=== PATIENT | female | born 1995 | race Caucasian/White ===

== ENCOUNTER 2018-06-16 09:50 | Emergency (ER) | payer OTHER ==
--- NOTE | 2018-06-16 10:05 | ED ---
GI/ HPI - HPI Summary HPI Summary: 23-year-old female presents with right-sided abdominal pain for the past couple days. States the pain is worst with movement. States it starts in her back. She admits to urgency and frequency for a day but that has since resolved. She did have a days worth of hematuria. Denies any vomiting. She states that food makes the pain worse. No diarrhea or constipation. She states she did have some dark looking stool yesterday. She denies any history of this pain. No previous abd surgeries. Has no medical conditions. Tried some ibuprofen for her symptoms. she denies any abnormal vaginal discharge. - History of Current Complaint Chief Complaint: EDAbdPain Time Seen by Provider: 06/16/18 09:56 Stated Complaint: ABD PAIN/DARK STOOL Pain Intensity: 5 - Allergy/Home Medications Allergies/Adverse Reactions: Allergies Allergy/AdvReac Type Severity Reaction Status Date / Time No Known Allergies Allergy Verified 06/16/18 09:55 PMH/Surg Hx/FS Hx/Imm Hx Endocrine/Hematology History: Denies: Hx Anticoagulant Therapy Respiratory History: Denies: Hx Asthma Infectious Disease History: No Infectious Disease History: Denies: Traveled Outside the [place] in Last 30 Days - Family History Known Family History: Positive: Non-Contributory - Social History Alcohol Use: None Substance Use Type: Reports: None Review of Systems Negative: Fever Negative: Chest Pain Negative: Shortness Of Breath Positive: Abdominal Pain, Other - vaginal bleeding. Negative: Vomiting, Diarrhea, Nausea All Other Systems Reviewed And Are Negative: Yes Physical Exam Triage Information Reviewed: Yes Vital Signs On Initial Exam: Initial Vitals Temp Pulse Resp BP Pulse Ox 97.9 F 85 16 139/71 100 06/16/18 09:51 06/16/18 09:51 06/16/18 09:51 06/16/18 09:51 06/16/18 09:51 Vital Signs Reviewed: Yes Appearance: Positive: Well-Appearing Skin: Positive: Warm, Dry Head/Face: Positive: Normal Head/Face Inspection Eyes: Positive: Normal, Conjunctiva Clear ENT: Positive: Pharynx normal Respiratory/Lung Sounds: Positive: Clear to Auscultation, Breath Sounds Present Cardiovascular: Positive: Normal, RRR Abdomen Description: Positive: Soft, Other: - tenderness RUQ pain, tenderness RLQ Bowel Sounds: Positive: Present Musculoskeletal: Positive: Normal Neurological: Positive: Normal Psychiatric: Positive: Normal Diagnostics - Vital Signs Vital Signs Temp Pulse Resp BP Pulse Ox 06/16/18 09:51 97.9 F 85 16 139/71 100 - Laboratory Result Diagrams: 06/16/18 10:46 06/16/18 10:46 Lab Statement: Any lab studies that have been ordered have been reviewed, and results considered in the medical decision making process. - CT abd CT Interpretation Completed By: Radiologist Summary of CT Findings: IMPRESSION: NORMAL APPENDIX. NO ACUTE CT PATHOLOGY OF THE VISUALIZED ABDOMEN OR PELVIS. - Ultrasound No standard instances Ultrasound Interpretation Completed By: Radiologist Summary of Ultrasound Findings: IMPRESSION: #. Negative for gallbladder pathology. #. Potential 0.6 cm nonobstructing stone midpole RIGHT kidney. Re-Evaluation - Re-Evaluation First Eval Re-Evaluation Time: 11:10 Change: Improved Comment: pain is better after toradol Second Eval Re-Evaluation Time: 11:38 Comment: pain is now in RLQ so will get CT Third Eval Re-Evaluation Time: 14:15 Comment: discussed results GIGU Course/Dx - Course Course Of Treatment: 23-year-old female presents with right-sided abdominal pain for the past couple days. States the pain is worst with movement. States it starts in her back. She admits to urgency and frequency for a day but that has since resolved. She did have a days worth of hematuria. Denies any vomiting. She states that food makes the pain worse. No diarrhea or constipation. She states she did have some dark looking stool yesterday. She denies any history of this pain. No previous abd surgeries. Has no medical conditions. Tried some ibuprofen for her symptoms. on exam has tenderness RUQ and RLQ. gallbladder u/s shows potential renal stone without hydro. wbc normal. crp elevated. urine shows uti so gave dose of rocephin. on eval just pain in RLQ so got CT. CT abd normal. will treat as uti with cipro. patient understand and agrees with plan. - Diagnoses Differential Diagnoses - Female: Appendicitis, Gall Bladder Disease, Pyelonephritis, Urinary Tract Infection Provider Diagnoses: Abdominal pain, UTI (urinary tract infection) Discharge - Sign-Out/Discharge Documenting (check all that apply): Patient Departure - Discharge Plan Condition: Good Disposition: HOME Prescriptions: Ciprofloxacin TAB* [Cipro 500 MG TAB*] 500 mg PO BID #13 tab Patient Education Materials: Urinary Tract Infection in Women (ED) Referrals: [facility] [place] - Cristofer CHACON [Primary Care Provider] - Additional Instructions: Take Cipro twice a day for 7 days drink plenty of fluids Follow up with primary within 5 days Return to ED if develop any new or worsening symptoms - Billing Disposition and Condition Condition: GOOD Disposition: Home
[2018-06-16] MEDS ORDERED: Ketorolac INJ* 30 MG/ML 1 ML VIAL IV PUSH ONE (10:14)
[2018-06-16] MEDS ORDERED: NS 0.9% 1000 ML* 1,000 ML IV ONE (10:14)
[2018-06-16 10:41] LABS: Urine Appearance Cloudy; Urine Bacteria 2+ (Absent); Urine Bilirubin Negative (Negative); Urine Blood 1+ (Negative); Urine Color Yellow; Urine Glucose Negative (Negative); Urine Ketones Negative (Negative); Urine Nitrite Positive (Negative); Urine Protein Negative (Negative); Urine Red Blood Cell 2+(6-10/hpf) (Absent); Urine Specific Gravity 1.011 (1.010-1.030); Urine Urobilinogen Negative (Negative); Urine White Blood Cell 3+(>20/hpf) (Absent)
[2018-06-16 10:54] LABS: ABS Basophils 0 10^3/ul (0-0.2); ABS Eosinophils 0 10^3/ul (0-0.6); ABS Lymphocytes 1.5 10^3/ul (1.0-4.8); ABS Monocytes 0.7 10^3/ul (0-0.8); ABS Neutrophils 4.3 10^3/ul (1.5-7.7); ABS Nucleated RBC 0 10^3/ul; Eosinophil % 0.7 %; Hematocrit 39 % (35-47); Hemoglobin 12.9 g/dl (12.0-16.0); Lymphocyte % 23.3 %; Mean Corpuscular HGB Conc 34 g/dl (31-36); Mean Corpuscular Hemoglobin 30 pg (27-31); Mean Corpuscular Volume 88 fL (80-97); Mean Platelet Volume 8.6 fL (7.4-10.4); Nucleated Red Blood Cells % 0; Platelet Count 218 10^3/ul (150-450); Red Blood Count 4.36 10^6/ul (4.00-5.40); Red Cell Distribution Width 14 % (10.5-15); White Blood Count 6.6 10^3/ul (3.5-10.8)
[2018-06-16] MEDS ORDERED: cefTRIAXone(*) 1 GM in NS 0.9% 50 ML* 50 ML IVPB ONE (11:06)
[2018-06-16] MEDS ORDERED: cefTRIAXone(*) 1 GM ADVAN/BAG ONE (11:09)
[2018-06-16 11:13] LABS: ALT 10 U/L (7-52); AST 11 U/L (13-39); Albumin 3.7 g/dL (3.2-5.2); Albumin/Globulin Ratio 1.1 (1-3); Alkaline Phosphatase 67 U/L (34-104); Anion Gap 8 mmol/L (2-11); BUN/Creatinine Ratio 11.9 (8-20); Blood Urea Nitrogen 7 mg/dL (6-24); C Reactive Protein 66.21 mg/L (<8.01); CO2 Carbon Dioxide 27 mmol/L (22-32); Calcium 9.4 mg/dL (8.6-10.3); Chloride 103 mmol/L (101-111); EGFR Non-African American 127.5 (>60); Globulin 3.5 g/dL (2-4); Glucose 101 mg/dL (70-100); Sodium 138 mmol/L (135-145); Total Protein 7.2 g/dL (6.4-8.9)
[2018-06-16 11:22] LABS: HCG Pregnancy < 0.60 mIU/mL
[2018-06-16] MEDS ORDERED: Iohexol 300* (CONTRAST) 10 ML SDV IV ONE (13:08)
[2018-06-16 14:24] VITALS: BP 120/72
--- NOTE | 2018-06-19 05:39 | PN ---
Progress Note - Progress Note Date of Service: 06/16/18 Note: Urine culture final grew Escherichia coli 100,000 Patient was placed on ciprofloxacin prior to discharge Ciprofloxacin is sensitive to organism Nothing further at this time
== END 2018-06-16 14:22 | disposition home or self-care (01) ==
LOC: ED 09:50
DX: R10.31 Right lower quadrant pain (principal); N39.0 Urinary tract infection, site not specified; B96.20 Unspecified Escherichia coli [E. coli] as the cause of diseases classified elsewhere
CPT/HCPCS: 36415; 74177; 76705; 80053; 81003; 81015; 82272; 83690; 84702; 85025; 86140; 87077; 87086; 87186; 96361; 96365; 96375; 99282; J0696; J1885; Q9967